=== PATIENT | female | born 1960 | race Caucasian/White ===

== ENCOUNTER 2022-09-22 07:30 | Inpatient (IN) ==
[~2022-09-22 07:30] MED LIST: Antihemophilic Factor/Von Wil 1000 UNIT VIAL (dose=VWF) IV SCH; Antihemophilic Factor/Von Wil 500 UNIT VIAL (dose=VWF) IV SCH; Buffered Lidocaine 1% SYRIN 1 ml INTRADERM ONE; Famotidine IV 10 MG/ML 2 ml VIAL (20 mg) IV ONE; Lactated Ringers 1000 ml BAG 1,000 ML IV SCH
[2022-09-22] MEDS ORDERED: ceFAZolin 2 GM in NS PREMIX 2 GM/100 ML BAG IVPB ONE (08:48)
[2022-09-22] MEDS ORDERED: Famotidine IV 10 MG/ML 2 ml VIAL (20 mg) ONE (08:48)
[2022-09-22 09:46] LABS: Rapid COVID-19 Molecular Undetected (Undetected)
[2022-09-22] MEDS ORDERED: Lidocaine 2% PF 5 ML VIAL ONE (09:50)
[2022-09-22] MEDS ORDERED: Propofol 10 MG/ML 20 ML BTL ONE ×2 (09:50→12:12)
[2022-09-22] MEDS ORDERED: fentaNYL 100 mcg/2 ml 50 MCG/ML VIAL ONE ×4 (09:51→15:48)
[2022-09-22] MEDS ORDERED: Midazolam 2 mg/2 ml VIAL 1 mg/ml 2 ml VIAL (2 mg) ONE ×2 (09:56→10:53)
[2022-09-22] MEDS ORDERED: Antihemophilic Factor/Von Wil 500 UNIT VIAL (dose=VWF) IV ONE (10:00)
[2022-09-22] MEDS ORDERED: Antihemophilic Factor/Von Wil 1000 UNIT VIAL (dose=VWF) IV ONE (10:00)
[2022-09-22] MEDS ORDERED: Vancomycin 1,000 MG VIAL ONE (10:35)
[2022-09-22] MEDS ORDERED: Bupivacaine 0.5% W/EPI SDV 10 ML VIAL INJ ONE (10:35)
[2022-09-22] MEDS ORDERED: ROPIVACAINE 5 MG/ML 30 ML BTL (0.5%) ONE (10:53)
[2022-09-22] MEDS ORDERED: Rocuronium 50 mg VIAL 10 mg/ml 5 ml VIAL (50 mg) ONE ×2 (11:24→13:19)
[2022-09-22] MEDS ORDERED: Ondansetron 4 mg VIAL 2 MG/ML 2 ml VIAL IV PRN ×2 (11:48→15:11)
[2022-09-22] MEDS ORDERED: Naloxone 0.4 mg VIAL 0.4 mg/ml 1 ml VIAL IV PRN (11:48)
[2022-09-22] MEDS ORDERED: hydrALAZINE 20 mg/ml 1 ML Vial IV ONE (12:11)
[2022-09-22] MEDS ORDERED: Sterile Water for Inj 10 ML ONE (12:12)
[2022-09-22] MEDS ORDERED: Acetaminophen IV 1 GM/100ML 1,000 MG/100 ML BAG IV ONE (12:40)
[2022-09-22] MEDS ORDERED: Ondansetron 4 mg VIAL 2 MG/ML 2 ml VIAL ONE (14:56)
[2022-09-22] MEDS ORDERED: Magnesium Hydroxide LIQ 30 ML UDC PO PRN (15:11)
[2022-09-22] MEDS ORDERED: Lactulose 30 ml UDC PO PRN (15:11)
[2022-09-22] MEDS ORDERED: Ondansetron ODT 4 mg TAB 4 MG TAB PO PRN (15:11)
[2022-09-22] MEDS ORDERED: Morphine 2 MG/ML SYRINGE IV PRN (15:11)
[2022-09-22] MEDS: fentaNYL 100 mcg/2 ml 50 MCG/ML VIAL IV PRN ×5 (15:19→15:49)
[2022-09-22] MEDS ORDERED: Lactated Ringers 1000 ml BAG 1,000 ML IV SCH (16:00)
[2022-09-22] MEDS: ceFAZolin 1 GM ADVAN 1 GM in NS 0.9% 50 ML 50 ML IVPB SCH (19:52)
[2022-09-22] MEDS: Magnesium Hydroxide LIQ 30 ML UDC PO SCH (22:19)
[2022-09-23] MEDS: ceFAZolin 1 GM ADVAN 1 GM in NS 0.9% 50 ML 50 ML IVPB SCH ×2 (03:12→11:27)
[2022-09-23 06:53] LABS: Hematocrit 28.5 % (35-45); Hemoglobin 9.7 g/dL (11.5-14.3); Mean Platelet Volume 8.3 fL (7.5-11.2); Platelet Count 237 10^3/uL (150-450)
[2022-09-23 07:16] LABS: Calcium 7.6 mg/dL (8.6-10.3); Creatinine, Serum 0.69 mg/dL (0.51-0.95); Potassium 3.6 mmol/L (3.5-5.0); eGFR CKD-EPI 96.9 (>60)
[2022-09-23] MEDS ORDERED: Vitamin THERAPEUTIC TAB PO SCH (09:00)
[2022-09-23] MEDS: Magnesium Hydroxide LIQ 30 ML UDC PO SCH (09:25)
[2022-09-23] MEDS ORDERED: Antihemophilic Factor/Von Wil 500 UNIT VIAL (dose=VWF) IV ONE (10:30)
[2022-09-23] MEDS ORDERED: Antihemophilic Factor/Von Wil 1000 UNIT VIAL (dose=VWF) IV ONE (10:30)
[2022-09-23 14:01] VITALS: BP 140/55
== END 2022-09-23 14:15 | disposition home or self-care (01) | DRG 302 ==
LOC: AA 07:43 → OBSVTOIN 07:43 → INTOOBSV 07:43 → SSU 17:44
PROVIDERS: ADMIT Orthopaedic Surgery; ATTEND Orthopaedic Surgery

== ENCOUNTER 2022-12-22 08:25 | Inpatient (IN) ==
[~2022-12-22 08:25] MED LIST changes: +Antihemophilic Factor/Von Wil 1000 UNIT VIAL (dose=VWF) IV ONE; -Antihemophilic Factor/Von Wil 1000 UNIT VIAL (dose=VWF) IV SCH; +Antihemophilic Factor/Von Wil 500 UNIT VIAL (dose=VWF) IV ONE; -Antihemophilic Factor/Von Wil 500 UNIT VIAL (dose=VWF) IV SCH; -Famotidine IV 10 MG/ML 2 ml VIAL (20 mg) IV ONE; +Metoclopramide 5 MG/ML VIAL (10 mg) IV PRN; +Naloxone 0.4 mg VIAL 0.4 mg/ml 1 ml VIAL IV PRN; +Ondansetron 4 mg VIAL 2 MG/ML 2 ml VIAL IV PRN
[2022-12-22] MEDS ORDERED: ceFAZolin 2 GM PREMIX 2 GM/50 ML BAG ONE (08:45)
[2022-12-22 09:06] LABS: Rapid COVID-19 Molecular Undetected (Undetected)
[2022-12-22] MEDS ORDERED: Glycopyrrolate IV 0.2 MG/ML 1 ML VIAL ONE (09:33)
[2022-12-22] MEDS ORDERED: Propofol 10 MG/ML 20 ML BTL ONE ×2 (09:33→12:59)
[2022-12-22] MEDS ORDERED: Lidocaine 2% PF 5 ML VIAL ONE (10:22)
[2022-12-22] MEDS ORDERED: Dexamethasone IV 4 MG/ML VIAL 1 ml VIAL ONE (10:22)
[2022-12-22] MEDS ORDERED: Ondansetron 4 mg VIAL 2 MG/ML 2 ml VIAL ONE (10:22)
[2022-12-22] MEDS ORDERED: Vancomycin 1,000 MG VIAL ONE (10:35)
[2022-12-22] MEDS ORDERED: fentaNYL 250 mcg/5 ml 50 MCG/ML 5 ml VIAL (250 MCG) ONE (11:15)
[2022-12-22] MEDS ORDERED: Midazolam 2 mg/2 ml VIAL 1 mg/ml 2 ml VIAL (2 mg) ONE (11:16)
[2022-12-22] MEDS ORDERED: HYDROmorphone 0.5 MG/0.5 ML SYRINGE ONE ×2 (12:47→13:51)
[2022-12-22] MEDS ORDERED: HYDROcodone/ACETAMIN 5/325 mg TAB ONE ×2 (15:24→17:03)
[2022-12-22] MEDS ORDERED: fentaNYL 100 mcg/2 ml 50 MCG/ML VIAL ONE ×2 (15:24→17:03)
[2022-12-22] MEDS ORDERED: Ondansetron ODT 4 mg TAB 4 MG TAB PO PRN (15:32)
[2022-12-22] MEDS ORDERED: Ondansetron 4 mg VIAL 2 MG/ML 2 ml VIAL IV PRN (15:32)
[2022-12-22] MEDS ORDERED: Lactulose 30 ml UDC PO PRN (15:32)
[2022-12-22] MEDS ORDERED: Magnesium Hydroxide LIQ 30 ML UDC PO PRN (15:32)
[2022-12-22] MEDS: HYDROcodone/ACETAMIN 5/325 mg TAB PO PRN ×2 (15:47→17:06)
[2022-12-22] MEDS: fentaNYL 100 mcg/2 ml 50 MCG/ML VIAL IV PRN ×5 (15:49→17:06)
[2022-12-22] MEDS ORDERED: Labetalol IV 5 MG/ML 20 ml VIAL IV PUSH PRN (16:34)
[2022-12-22] MEDS ORDERED: Labetalol IV 5 MG/ML 20 ml VIAL ONE (16:38)
[2022-12-22] MEDS ORDERED: Metoclopramide 5 MG/ML VIAL (10 mg) ONE (17:14)
[2022-12-22] MEDS: Lactated Ringers 1000 ml BAG 1,000 ML IV SCH (18:10)
[2022-12-22] MEDS ORDERED: ceFAZolin 1 GM ADVAN 1 GM in NS 0.9% 50 ML 50 ML IVPB SCH (20:30)
[2022-12-22] MEDS: Morphine 2 MG/ML SYRINGE IV PRN (21:53)
[2022-12-22] MEDS: ceFAZolin 1 GM ADVAN 1 GM in NS 0.9% 50 ML 50 ML IVPB SCH (22:15)
[2022-12-22] MEDS: Magnesium Hydroxide LIQ 30 ML UDC PO SCH (23:05)
[2022-12-23] MEDS: Morphine 2 MG/ML SYRINGE IV PRN (01:57)
[2022-12-23] MEDS: Lactated Ringers 1000 ml BAG 1,000 ML IV SCH (04:06)
[2022-12-23] MEDS: ceFAZolin 1 GM ADVAN 1 GM in NS 0.9% 50 ML 50 ML IVPB SCH ×2 (05:49→13:51)
[2022-12-23 06:30] LABS: Hematocrit 28.1 % (35-45); Hemoglobin 9.4 g/dL (11.5-14.3); Mean Platelet Volume 8.3 fL (7.5-11.2); Platelet Count 256 10^3/uL (150-450)
[2022-12-23 06:46] LABS: Calcium 8.2 mg/dL (8.6-10.3); Creatinine, Serum 0.6 mg/dL (0.51-0.95); Potassium 3.8 mmol/L (3.5-5.0); eGFR CKD-EPI 100.2 (>60)
[2022-12-23] MEDS: Magnesium Hydroxide LIQ 30 ML UDC PO SCH (08:28)
[2022-12-23] MEDS ORDERED: Vitamin THERAPEUTIC TAB PO SCH (09:00)
[2022-12-23] MEDS ORDERED: Antihemophilic Factor/Von Wil 1000 UNIT VIAL (dose=VWF) IV ONE (10:00)
[2022-12-23] MEDS ORDERED: Antihemophilic Factor/Von Wil 500 UNIT VIAL (dose=VWF) IV ONE (10:00)
[2022-12-23 14:14] VITALS: BP 111/72
[2022-12-24] MEDS ORDERED: Antihemophilic Factor/Von Wil 500 UNIT VIAL (dose=VWF) IV ONE (10:00)
[2022-12-24] MEDS ORDERED: Antihemophilic Factor/Von Wil 1000 UNIT VIAL (dose=VWF) IV ONE (10:00)
== END 2022-12-23 14:50 | disposition home or self-care (01) | DRG 302 ==
LOC: SSU 08:25 → OR 08:25 → OBSVTOIN 17:26
PROVIDERS: ADMIT Orthopaedic Surgery; ATTEND Orthopaedic Surgery